=== PATIENT | female | born 1980 | race Caucasian/White ===

== ENCOUNTER → 2016-05-21 | Outpatient (REF) | payer OTHER | LOC: M LAB REF 12:56 | PROVIDERS: ATTEND Obstetrics & Gynecology | DX: Z01.419 Encounter for gynecological examination (general) (routine) without abnormal findings (principal); Z11.51 Encounter for screening for human papillomavirus (HPV) ==

== ENCOUNTER → 2017-02-05 | Outpatient (CLI) | payer OTHER ==
--- NOTE | 2017-02-05 14:30 | REP ---
Clinical: Positive PPD test . Comparison: None . Technique: PA and lateral. Findings: The mediastinum and cardiac silhouette are normal. The lung puentes are clear and without acute consolidation, effusion, or pneumothorax. The skeletal structures are intact and normal. Impression: 1. No acute cardiopulmonary process. Signed by Ramírez Allen MD 02/05/2017 02:22 P
== END ==
LOC: M SMT 13:37
PROVIDERS: ATTEND Physician Assistant
DX: R76.11 Nonspecific reaction to tuberculin skin test without active tuberculosis (principal)

== ENCOUNTER → 2017-06-15 | Outpatient (CLI) | payer OTHER ==
[2017-06-15 18:00] LABS: BASO % 0.4 % (0.0-1.0); HEMATOCRIT 38.3 % (36.0-47.0); HEMOGLOBIN 13.4 g/dl (12.0-16.0); IMMATURE GRANULOCYTE % 0.4 % (0-3.0); LYMPH # 2.5 10^3/uL (1.5-4.5); LYMPH % 29.7 % (24.0-44.0); MEAN CORPUSCULAR HEMOGLOBIN 29.6 pg (27.0-33.0); MEAN CORPUSCULAR VOLUME 84.5 fl (80.0-96.0); MONO # 0.6 10^3/uL (0.0-0.8); MONO % 7.1 % (0.0-5.0); NEUTROPHILS # 5.2 10^3/uL (1.8-7.7); NEUTROPHILS % 62.4 % (36.0-66.0); PLATELET COUNT, AUTOMATED 260 10^3/uL (150-450); RED BLOOD COUNT 4.53 10^6/uL (4.00-5.40); RED CELL DISTRIBUTION WIDTH 12.2 % (11.5-14.5); WHITE BLOOD COUNT 8.3 10^3/uL (4.0-10.0)
[2017-06-15 21:58] LABS: CHLAMYDIA DNA AMPLIFICATION NEGATIVE (NEGATIVE); GC DNA AMPLIFICATION NEGATIVE (NEGATIVE)
[2017-06-16 10:40] LABS: RUBELLA IgG QUALITATIVE IMMUNE (IMMUNE)
[2017-06-16 10:43] LABS: HBsAg Prenatal NEGATIVE (NEGATIVE)
[2017-06-16 11:01] LABS: HEPATITIS C VIRUS ABY INDEX < 0.0 INDEX (<0.8)
[2017-06-16 11:23] LABS: HIV 1&2 SCREEN CENTAUR NEGATIVE (NEGATIVE)
== END ==
LOC: M SMT 14:45
DX: Z34.81 Encounter for supervision of other normal pregnancy, first trimester (principal); Z3A.12 12 weeks gestation of pregnancy
CPT/HCPCS: 86762

== ENCOUNTER → 2017-08-17 | Outpatient (CLI) | payer OTHER | LOC: M SMT 13:39 | DX: Z34.82 Encounter for supervision of other normal pregnancy, second trimester (principal); Z3A.21 21 weeks gestation of pregnancy ==

== ENCOUNTER → 2017-09-07 | Outpatient (CLI) | payer OTHER ==
[2017-09-07 13:47] LABS: HEMATOCRIT 35.4 % (36.0-47.0); HEMOGLOBIN 12.2 g/dl (12.0-15.5); MEAN CORPUSCULAR HEMOGLOBIN 30.6 pg (27.0-33.0); MEAN CORPUSCULAR HGB CONC 34.5 g/dl (32.0-36.5); MEAN CORPUSCULAR VOLUME 88.7 fl (80.0-96.0); PLATELET COUNT, AUTOMATED 211 10^3/uL (150-450); RED BLOOD COUNT 3.99 10^6/uL (4.00-5.40); RED CELL DISTRIBUTION WIDTH 13.8 % (11.5-14.5); WHITE BLOOD COUNT 9.3 10^3/uL (4.0-10.0)
[2017-09-07 14:21] LABS: GLUCOSE CHALLENGE TEST 1 HOUR 95 MG/DL (LESS THAN 140)
[2017-09-08 09:02] LABS: TYPE AND SCREEN 1 1
== END ==
LOC: M SMT 10:32
DX: Z34.82 Encounter for supervision of other normal pregnancy, second trimester (principal); Z36.89 Encounter for other specified antenatal screening
CPT/HCPCS: 82950

== ENCOUNTER → 2017-09-08 | Outpatient (CLI) | payer OTHER | LOC: M RAD 06:24 | DX: Z34.82 Encounter for supervision of other normal pregnancy, second trimester (principal) ==

== ENCOUNTER → 2017-12-03 | Outpatient (REF) | payer OTHER | LOC: M LAB REF 13:02 | DX: Z34.83 Encounter for supervision of other normal pregnancy, third trimester (principal) ==

== ENCOUNTER 2017-12-22 00:07 | Inpatient (IN) | payer OTHER ==
[2017-12-22] MEDS: PENICILLIN G POTASSIUM IV 5 MU in D5W MINI-BAG PLUS 100 ML IV (00:38)
[2017-12-22] MEDS ORDERED: OXYTOCIN 30 UNITS IN 0.9% NaCl 500ML IV BAG (J2590) As Ordered (00:50)
[2017-12-22 01:14] LABS: HEMATOCRIT 37.7 % (36.0-47.0); HEMOGLOBIN 13.2 g/dl (12.0-15.5); MEAN CORPUSCULAR HEMOGLOBIN 31.2 pg (27.0-33.0); MEAN CORPUSCULAR VOLUME 89.1 fl (80.0-96.0); PLATELET COUNT, AUTOMATED 200 10^3/uL (150-450); RED BLOOD COUNT 4.23 10^6/uL (4.00-5.40)
[2017-12-22] MEDS: OXYTOCIN DRIP 30 UNITS in APPROPRIATE DILUENT 1 EA IV ×2 (01:20→06:38)
[2017-12-22] MEDS: LR 1,000 ML IV ×2 (01:20→04:35)
[2017-12-22] MEDS: PROMETHAZINE INJ 25 MG/ML VIAL (J2550) IV (04:06)
[2017-12-22] MEDS: BUTORPHANOL 2 MG/ML INJ (J0595) IV (04:07)
[2017-12-22] MEDS: PENICILLIN G POTASSIUM IV 2.5 MU in APPROPRIATE DILUENT 1 EA IV (04:35)
[2017-12-22] MEDS ORDERED: MOM 30ML SUSPENSION UDC PO (06:45)
[2017-12-22] MEDS ORDERED: METHYLERGONOVINE MALEATE 0.2 MG TAB PO (06:45)
[2017-12-22] MEDS ORDERED: ANUSOL HC CREAM 30GM TOP (06:45)
[2017-12-22] MEDS ORDERED: DOCUSATE SODIUM 100 MG CAP PO (06:45)
[2017-12-22] MEDS ORDERED: DIBUCAINE 1% OINTMENT 30GM TOP (06:45)
[2017-12-22] MEDS ORDERED: ACETAMINOPHEN 500 MG TAB PO (06:45)
[2017-12-22] MEDS: LIDOCAINE 1% MDV 20ML VIAL INFIL (06:45)
[2017-12-22] MEDS: IBUPROFEN 800 MG TAB PO ×3 (08:24→16:26)
[2017-12-22] MEDS: PRENATAL VITAMINS CHEWABLE TABLET PO (08:24)
[2017-12-22] MEDS: MEASLES,MUMPS,RUBELLA VACCINE INJ (MMR-II) (90707) SC (11:33)
[2017-12-22] MEDS: RHOGAM 300 MCG (1500 IU) INJ (J2790) IM (16:26)
[2017-12-23] MEDS: PRENATAL VITAMINS CHEWABLE TABLET PO (13:28)
[2017-12-23] MEDS: IBUPROFEN 800 MG TAB PO (13:28)
== END 2017-12-23 14:00 | disposition home or self-care (01) | DRG 775 ==
LOC: M LDO 00:07 → M LDI 00:30 → M OBS 08:52
PROVIDERS: Obstetrics & Gynecology
PROC: 10E0XZZ Delivery of Products of Conception, External Approach (ICD-10-PCS; principal; 2017-12-22)
PROC: 0UQC0ZZ Repair Cervix, Open Approach (ICD-10-PCS; 2017-12-22)
PROC: 0HQ9XZZ Repair Perineum Skin, External Approach (ICD-10-PCS; 2017-12-22)
DX: O42.02 Full-term premature rupture of membranes, onset of labor within 24 hours of rupture (principal); O71.3 Obstetric laceration of cervix; O99.824 Streptococcus B carrier state complicating childbirth; Z3A.39 39 weeks gestation of pregnancy; O69.81X0 Labor and delivery complicated by cord around neck, without compression, not applicable or unspecified; O70.0 First degree perineal laceration during delivery; Z37.0 Single live birth

== ENCOUNTER → 2017-12-27 | Outpatient (REF) | payer OTHER | LOC: M LAB REF 13:07 | DX: R30.0 Dysuria (principal) ==

== ENCOUNTER → 2018-04-29 | Outpatient (CLI) | payer OTHER ==
[~2018-04-29] MED LIST: FLUO10CA8 PO; FOLI800C PO; IBUP-1114 PO; MAPA500T2 PO; PRENTAB9 PO; ZYRTTAB8 PO
[2018-04-29 13:17] LABS: BASO % 0.6 % (0.0-1.0); HEMATOCRIT 42.5 % (36.0-47.0); HEMOGLOBIN 14.5 g/dl (12.0-15.5); LYMPH # 2.8 10^3/uL (1.5-4.5); LYMPH % 41.4 % (24.0-44.0); MEAN CORPUSCULAR HEMOGLOBIN 28.6 pg (27.0-33.0); MEAN CORPUSCULAR HGB CONC 34.1 g/dl (32.0-36.5); MEAN CORPUSCULAR VOLUME 83.8 fl (80.0-96.0); MONO # 0.5 10^3/uL (0.0-0.8); NEUTROPHILS # 3.4 10^3/uL (1.8-7.7); NEUTROPHILS % 50.6 % (36.0-66.0); PLATELET COUNT, AUTOMATED 282 10^3/uL (150-450); RED BLOOD COUNT 5.07 10^6/uL (4.00-5.40); WHITE BLOOD COUNT 6.7 10^3/uL (4.0-10.0)
[2018-04-29 13:22] LABS: BLOOD UREA NITROGEN 13 MG/DL (7-18); CALCIUM LEVEL 8.9 MG/DL (8.5-10.1); CARBON DIOXIDE LEVEL 31 MEQ/L (21-32); CHLORIDE LEVEL 104 MEQ/L (98-107); CREATININE FOR GFR 0.93 MG/DL (0.55-1.30); GLOMERULAR FILTRATION RATE > 60.0 (>60); GLUCOSE, FASTING 90 MG/DL (70-100); POTASSIUM SERUM 4.5 MEQ/L (3.5-5.1); SODIUM LEVEL 139 MEQ/L (136-145)
[2018-04-29 13:37] LABS: FOLATE > 24.0 NG/ML
[2018-05-02 10:30] LABS: VITAMIN B12 LEVEL 858 PG/ML (232-1245)
== END ==
LOC: M SMT 11:14
PROVIDERS: ATTEND Physician Assistant
DX: D51.9 Vitamin B12 deficiency anemia, unspecified (principal)

== ENCOUNTER → 2018-05-10 | Outpatient (REF) | payer OTHER ==
[2018-05-13 14:17] LABS: HPV HYBRID CAPTURE II Negative (Negative)
== END ==
LOC: M LAB REF 17:52
PROVIDERS: ATTEND Obstetrics & Gynecology
DX: Z12.4 Encounter for screening for malignant neoplasm of cervix (principal); Z11.51 Encounter for screening for human papillomavirus (HPV)
CPT/HCPCS: 87624; G0123

== ENCOUNTER → 2018-07-27 | Outpatient (CLI) | payer OTHER ==
[2018-07-27 13:54] LABS: FREE T4 0.87 NG/DL (0.76-1.46); RHEUMATOID FACTOR QUANT < 10.0 IU/ML (<15.0); TOTAL 25(OH) VITAMIN D 20.5 NG/ML (30.0-100.0); URIC ACID 4.1 MG/DL (2.6-6.0); VITAMIN B12 LEVEL 938 PG/ML (247-911)
[2018-07-30 00:06] LABS: ANTI DOUBLE STRAND-DNA AB 39 IU/mL (0-9); ANTINUCLEAR ANTIBODIES DIRECT Positive (Negative); CYCLIC CITRULLINATED PEPTIDE 17 units (0-19); Lyme Disease IgG/IgM Antibodie <0.91 ISR (0.00-0.90); Lyme Disease IgM Ab Quantitati <0.80 index (0.00-0.79); RNP ANTIBODIES <0.2 AI (0.0-0.9); SJOGREN'S ANTI SS-A <0.2 AI (0.0-0.9); SJOGREN'S ANTI SS-B <0.2 AI (0.0-0.9); SMITH ANTIBODIES <0.2 AI (0.0-0.9)
== END ==
LOC: M SMT 10:10
PROVIDERS: ATTEND Family Medicine
DX: D59.1 Other autoimmune hemolytic anemias (principal); M79.671 Pain in right foot; M79.672 Pain in left foot

== ENCOUNTER → 2018-12-13 | Outpatient (CLI) | payer OTHER ==
[~2018-12-13] MED LIST changes: +FLUO10CA15 PO; -FLUO10CA8 PO
[2018-12-13 17:11] LABS: COMPLEMENT C3 118 MG/DL (90-180); COMPLEMENT C4 18 MG/DL (10-40)
[2018-12-13 17:34] LABS: CREATININE,RANDOM URINE 43.8 MG/DL; TOTAL PROTEIN,RANDOM URINE 6.5 MG/DL (0.0-12.0)
[2018-12-13 17:36] LABS: APPEARANCE, URINE CLEAR (CLEAR); BACTERIA, URINE AUTO NEGATIVE (NEGATIVE); BILIRUBIN, URINE AUTO NEGATIVE (NEGATIVE); BLOOD, URINE BLOOD NEGATIVE (NEGATIVE); COLOR, URINE YELLOW (YELLOW); GLUCOSE, URINE (UA) AUTO NEGATIVE (NEGATIVE); KETONE, URINE AUTO NEGATIVE (NEGATIVE); LEUKOCYTE ESTERASE, URINE AUTO NEGATIVE (NEGATIVE); NITRITE, URINE AUTO NEGATIVE (NEGATIVE); PROTEIN, URINE AUTO NEGATIVE (NEGATIVE); RBC, URINE AUTO 0 /HPF (0-3); SPECIFIC GRAVITY URINE AUTO 1.006 (1.002-1.035); SQUAMOUS EPITHELIAL CELL UR AU 0 /HPF (0-6); UROBILINOGEN, URINE AUTO 0.2 mg/dL (0.0-2.0); WBC, URINE AUTO 0 /HPF (0-3)
[2018-12-19 14:07] LABS: ANA (HEP2) Negative (.); ANTI DS-DNA AB <1:10 titer (.)
== END ==
LOC: M SMT 15:03
PROVIDERS: ATTEND Internal Medicine Rheumatology
DX: R76.8 Other specified abnormal immunological findings in serum (principal)
CPT/HCPCS: 36415; 81001; 82570; 84156; 86038; 86160; 86225; G0463

== ENCOUNTER → 2020-03-31 | Outpatient (CLI) | payer OTHER ==
[~2020-03-31] MED LIST changes: +CELE20TA PO; +D31000TA2 PO; -FLUO10CA15 PO; +FLUO10CA16 PO; +MAGN250T7 PO; +TRI-1TAB PO
== END ==
LOC: M LABSMTC 10:20
PROVIDERS: ATTEND Anesthesiology
DX: Z01.812 Encounter for preprocedural laboratory examination (principal); Z20.822 Contact with and (suspected) exposure to COVID-19

== ENCOUNTER 2020-04-05 10:45 | Day surgery (SDC) | payer OTHER ==
[~2020-04-05] VITALS: Ht 172.7 cm; Wt 85.7 kg
[~2020-04-05 10:45] MED LIST changes: +NS 1,000 ML IV ONE
--- OUTSIDE RECORDS SUMMARY | 2020-04-05 10:53 | CCD | Continuity of Care Document ---
Author Author Beba EARL M.D. Organization Unknown Address [address] [place] [address], [address] [place] [address] Phone [phone] Care Team Providers Care Network Systems Engineer Name Role Phone Natalee Rice D.O. AUTM [phone] Problems Description No Information Available Social History Type Date Description Comments Sex Unknown ETOH Use 1 to 5 a week Recreational Drug Use Denies Drug Use Tobacco Use Start: Unknown Quit Exercise Type/Frequency Exercises regularly HILLARY: 12/27/2017 Estimated Date of Delivery Based on 1st Ultrasound Allergies, Adverse Reactions, Alerts Description No Known Drug Allergies Medications Active Medications SIG Qnty Indications Ordering Provide r Date Celexa 20mg Tablets 1 by mouth every day Unknown Frm-Ye-Mgonxqyh 0.18 /0.215/0.25 mg-25 mcg Tablets 1tab po qd Unknown Magnesium 250MG Tablets 1tab po qd Unknown 0 Vitamin D3 50mcg (1999 [place]) Capsule s 1cap po qd Unknown Zyrtec Allergy 10mg Capsules 1cap po qd Unknown Immune Support Priobiotic W/Lactbacillus Capsule 1cap po qd Unknown Immunizations CPT Code Status Date Vaccine Lot # [id number] Given 12/16/2017 Influenza Virus Split 3 Yrs And Above For Intramuscular Use 79063 Given 10/20/2017 Tetanus, Diphthe edgra Toxoids/Acellular Pertussis Vaccine 7 Or > [id number] Given 10/06/2017 Rho(D) Immune Globulin Full Dose Intramuscular Vital Signs Date Vital Result Comment 03/04/2020 9:22am BP Systolic 114 mmHg BP Diastolic 60 mmHg Height 68 inches 5'8" Weight 184.00 lb BMI (Body Mass Index) 28.0 kg/m2 [place] Body Weight 140 lb Weight 83.462 kg BSA (Body Surface Area) 1.97 m2 05/10/2018 1:19pm BP Systolic 112 mmHg BP Diastolic 68 mmHg Height 68 inches 5'8" Weight 188.00 lb BMI (Body Mass Index) 28.6 kg/m2 [place] Body Weight 140 lb Weight 85.277 kg BSA (Body Surface Area) 1.99 m2 Results Description No Information Available Procedures Description No Information Available Medical Devices Description No Information Available Encounters Description No Information Available Assessments Date Code Description Provider 03/04/2020 K22.4 Dyskinesia of esophagus Ana Earl M.D. 03/04/2020 R13.10 Dysphagia, unspecified Reddy Earl M.D. 03/04/2020 K90.0 Celiac disease Reddy Diggs ala, M.D. Plan of Treatment 03/04/2020 - Reddy Earl M.D.* K22.4 Dyskinesia of esophagus * R13.10 Dysphagia, unspecified * K90.0 Celiac disease * * Comments:* Impression:-- Generalized fatigue and joint aches, and prior abdominal bloating ( improved with probiotics) and work up at PCP clinic showed borderline positive TTG IgG antibodies -- Needs follow up.-- intermittent esophageal spasms associated with choking sensation and regurgitation of ingested food and saliva -- Needs further evaluation. DDx-- EOE vs Silent reflux with stricture vs esophageal motility disorder. * Recommendations:* -- Educated about the prior test results and all possible differential diagnoses. All questions answered. -- Avoid NSAIDs as much as possible. -- Follow the Anti reflux measures; avoid acid reflux inducing food: excessive caffeine, chocolate, alcohol, peppermint and fatty foods; , Avoid large and late meal: eating three or more hours before bedtime. -- Will schedule for EGD with possile dilation and biopsy. The procedure, indications, risks (bleeding, perforation, infection, hypotension, respiratory depression, allergy, need for endotracheal intubation, surgery, or even ), benefits, limitations (e.g., missing a lesion), and all other alternatives (including no intervention) were explained to the patient who understood and agreed for the procedures. -- Return to clinic 2 weeks post procedures. -- Follow up with PMD for routine medical care and other age appropriate health maintenance.. Functional Status Description No Information Available Mental Status Description No Information Available Referrals Refer to Reason for Referral Status Appt Date Reddy Earl M.D. POSITIVE TTG ANTIBODY AND S YMPTOMS OF FATIGUE AND MYALGIAS Scheduled 03/04/[address] [place] [address] [phone]
--- OUTSIDE RECORDS SUMMARY | 2020-04-05 10:53 | CCD ---
Author Author [facility] Organization [facility] Address Unknown Phone Unavailable Care Team Providers Care Group Art Supervisor Name Role Phone Traci Bettencourt Unavailable PROBLEMS Type Condition ICD9-CM Code [id number] Code Onset Dates Condition S tatus SNOMED Code Notes Problem TORREY positive R76.8 Active [id number] Problem History of cervical dysplasia Z87.410 Active 47 [id number] ALLERGIES Allergen (clinical drug ingredient) Drug/Non Drug Allergy do cumented on EMR Reaction Allergy Type Onset Date Status seasonal Unknown Non Drug Allergy Active ENCOUNTERS from 1982 to 2020-03-30 Encounter Location Date Provider Diagnosis [facility] [address] [place] [id number] Mar, Traci Bettencourt Wart B07.9 and Histo ry of cervical dysplasia Z87.410 IMMUNIZATIONS No Information SOCIAL HISTORY Tobacco Use: Social History Observation Description Date Details (start date - stop date) Never Smoker Sex Assigned At : Social History Observation Description Sex Assigned At Unknown Sexual Hx: Question Answer Notes Had sex in the last 12 months (vaginal, oral, or anal)? Yes LMP: 03/18/2020 Have you ever had an STD? No with Men only Use protection? No Alcohol Screening: Question Answer Notes Did you have a drink containing alcohol in the past year? Ye s Points 2 Interpretation Negative How often did you have six or more drinks on one occas ion in the past year? Never (0 points) How many drinks did you have on a typica l day when you were drinking in the past year? 1 or 2 (0 points) How often did you have a drink containing alcohol in t he past year? Two to four times a month (2 points) Tobacco Use: Question Answer Notes Are you a: never smoker REASON FOR REFERRAL No Information VITAL SIGNS Weight 186.8 lbs Mar, Weight-kg 84.73 kg Mar, Height 68 in Mar, BMI 28.4 kg/m2 Mar, Blood pressure systolic 112 mm Hg Mar, Blood pressure diastolic 70 mm Hg Mar, MEDICATIONS Medication SIG (Take, Route, Frequency, Duration) Notes Start Da te End Date Status Zyrtec Allergy 10 MG 1 tablet Orally Once a day for 30 day(s) Active Prenatabs Rx 29-1 MG Oral for 90 No t-Taking Citalopram Hydrobromide 40 MG Oral for 90 Active Vitamin D 50 MCG (1999) 1 tablet Orally Once a day Active Magnesium 250 MG 1 tablet with a meal Orally Once a day Active Tri-Sprintec 0.18/0.215/0.25 MG-35 MCG Oral for 84 Active PROCEDURES No Information RESULTS No Results REASON FOR VISIT POSSIBLY INFECTED CYST MEDICAL (GENERAL) HISTORY Type Description Date Medical History Depression/ Anxiety Surgical History hip pinning 09/2013 Surgical History wisdom teeth 2001 Goals Section No Information Health Concerns No Information MEDICAL EQUIPMENT No Information MENTAL STATUS No Information FUNCTIONAL STATUS No Information ASSESSMENTS Encounter Date Diagnosis Assessment Notes Treatment Notes Treatm ent Clinical Notes Mar, Wart (ICD-10 - B07.9) No evidence today of any vaginal/vulvar cyst based on exam- consistent with patient's statement that it resolved. The area she points to is at 6 o'clock at the vaginal outlet, NOT consistent in location with Bartholin cyst. Regardless, it resolved. She does have a small vulvar wart on the left labia which does not bother her and no tx desired at this time. Mar, History of cervical dysplasia (ICD-10 - Z87.410) Patient had LEEP in 2018. One normal pap after. Overdue for 2nd repeat. She will schedule pap/annual exam. PLAN OF TREATMENT Treatment Notes Assessment Notes Clinical Notes Wart No evidence today of any vag inal/vulvar cyst based on exam- consistent with patient's statement that it resolved. The area she points to is at 6 o'clock at the vaginal outlet, NOT consistent in location with Bartholin cyst. Regardless, it resolved. She does have a small vulvar wart on the left labia which does not bother her and no tx desired at this time. History of cervical dysplasia Patient had LEEP in 2018 . One normal pap after. Overdue for 2nd repeat. She will schedule pap/annual exam. Next Appt Details for annual exam Reason: Provider Name:Traci Bettencourt, 2020-03 03:20:00 PM, [address] [place], [address], Insurance Providers Payer Name Payer Address Payer Phone Insured Name Patient Relati onship to Insured Coverage Start Date Coverage End Date [address] [phone] KIRAN CHADWICK self
--- OUTSIDE RECORDS SUMMARY | 2020-04-05 10:54 | CCD | Continuity of Care Document ---
Author Author Beba RICE Organization Unknown Address [address] [facility] [address] [place] [address] Phone [phone] Care Team Providers Care Real Estate Rep Name Role Phone Natalee Rice D.O. AUTM [phone] Reddy Bello MD AUTM [phone] Problems Active Problems Provider Date Gynecologic examination Natalee Rice D.O. Onset: Acne Natalee Rice D.O. Onset: 2015 Adult health examination Natalee Rice D.O. Onset: 0 10/08/2015 History and physical examination, administrative Natalee Raymond D.O. Onset: 10/08/2015 Arthralgia of the pelvic region and thigh Natalee schultz D.O. Onset: 12/19/2015 Nonallopathic lesion of the head region Natalee Rice D.O. Onset: 12/19/2015 Nonallopathic lesion of the cervical region Natalee rangel D.O. Onset: 12/19/2015 Nonallopathic lesion of the thoracic region Natalee rangel D.O. Onset: 12/19/2015 Nonallopathic lesion of lumbar region Natalee Rice D.O. Onset: 12/19/2015 Somatic dysfunction of sacroiliac joint Natalee Rice D.O. Onset: 12/19/2015 Nonallopathic lesion of the pelvic region Natalee schultz D.O. Onset: 12/19/2015 Nonallopathic lesion of lower extremities Natalee schultz, D.OIzzy Onset: 12/19/2015 Nonallopathic lesion of upper extremities Natalee schultz, D.O. Onset: 12/19/2015 Mantoux: positive FILI Roth Onset: 02/09/2017 Note: CXR and Quantiferon gold negative 02/05. Social History Type Date Description Comments Sex Unknown Tobacco Use Start: Unknown End: Unknown Quit Smoking Status Reviewed: 11/21/19 Quit ETOH Use Occasionally consumes alcohol Tobacco Use Start: Unknown End: Unknown Patient is a former smoker Recreational Drug Use Denies Drug Use Exercise Type/Frequency Cardio 1-2 days a week Sun Exposure Uses sunscreen Seat Belt/Car Seat Always uses seat belt Allergies, Adverse Reactions, Alerts Description No Known Drug Allergies Medications Active Medications SIG Qnty Indications Ordering Provide r Date Ortho Tri-Cyclen Lo 0.18/0.215/0.25 mg-25 mcg Tablets 1 by mouth every day 28tabs Natalee Rice D.O. 11/21/2019 Citalopram Hydrobromide 20mg Table ts 1 by mouth every day 30tabs F41.1 Amanda Palmer.OIzzy 10/30 Vitamin D3 5000Unit Tablets 1 by mouth every day 90tabs E55.9 Amanda Palmer.O. 08/02 Fluticasone Propionate 50mcg/Act Suspension 1 spray each nostril twice daily as needed for congestion. 16gm J30.9 Natalee Rice D.OIzzy 04/29/2018 Biotin Maximum Strength 5000mcg Ca psules 1 by mouth every day Unknown Zyrtec Allergy 10mg Tablets 1 by mouth every night Unknown Magnesium 250mg Tablets 1 by mouth a day Unknown Multi-Vitamin Gummies Chewtabs Unknown Medications Administered in Office Medication SIG Qnty Indications Ordering Provider Date Immunization Administration Single Or Co mbination Injection Nurse 02/03/2017 Immunization Administration Single Or Co mbination Injection Nurse 01/14/2016 Immunization Adminstration 2+ Single Or Combination Injection Natalee Cabral D.O. 10/08/2015 Immunization Administration Single Or Co mbination Injection Amanda Palmer 10/08/2015 Immunizations CPT Code Status Date Vaccine Lot # [id number] Given 02/03/2017 Influenza Vaccin e Quadrivalent Preser/Antibiotic Free Im Use [id number] 69006 Given 02/03/2017 TB Intradermal Test [id number] 55529 Given 01/14/2016 Influenza Virus Vaccine, Quadrivalent, Split, Preservative Free [id number] [id number] Given 10/08/2015 Hepatitis B Vaccine Adult 73 X43 32367 Given 10/08/2015 Meningococcal Vaccine (Any G roups) For Subcutaneous Use [id number] 49033 Given 10/08/2015 Tetanus, Diphthe edgar Toxoids/Acellular Pertussis Vaccine 7 Or > [id number] 31968 Given 10/08/2015 TB Intradermal Test [id number] U-HepB Given 03/05/1997 Hepatitis B,Unspecified U-HepB Given 02/01/1997 Hepatitis B,Unspecified 68794 Given 02/01/1997 MMR Vaccine, Live, For Subcu taneous Use U-Polio Given 12/31/1987 Polio,Unspecified U-DTaP Given 12/30/1984 DTaP,Unspecified U-HIB Given 12/27/1984 Hib,Unspecified U-Polio Given 06/23/1984 Polio,Unspecified U-DTaP Given 06/23/1984 DTaP,Unspecified 95071 Given 03/28/1984 MMR Vaccine, Live, For Subcu taneous Use U-DTaP Given 06/24/1983 DTaP,Unspecified U-Polio Given 05/01/1983 Polio,Unspecified U-DTaP Given 05/01/1983 DTaP,Unspecified U-Polio Given 02/26/1983 Polio,Unspecified U-DTaP Given 02/26/1983 DTaP,Unspecified Vital Signs Date Vital Result Comment 01/22/2020 9:26am BP Systolic 116 mmHg BP Diastolic 74 mmHg Height 68.3 inches 5'8.30" Weight 185.38 lb BMI (Body Mass Index) 27.9 kg/m2 Heart Rate 94 /min Respiratory Rate 18 /min Body Temperature 98.6 F O2 % BldC Oximetry 98 % [place] Body Weight 140 lb 11/21/2019 9:16am BP Systolic 118 mmHg BP Diastolic 70 mmHg Height 68.3 inches 5'8.30" Weight 181.25 lb BMI (Body Mass Index) 27.3 kg/m2 Heart Rate 89 /min Respiratory Rate 18 /min Body Temperature 98.3 F O2 % BldC Oximetry 98 % [place] Body Weight 140 lb Results Test Acquired Date Facility Test Result H/L Range Note Laboratory test finding 11/21/2019 Inhouse Inhouse Urine neg Procedures Description No Information Available Medical Devices Description No Information Available Encounters Type Date Location Provider Dx Diagnosis Office Visit 01/22/2020 9:40a [facility] Natalee Rice D.O. R53.83 Other fatigue M79.10 Myalgia, unspecified site R76.0 Raised antibody titer E55.9 Vitamin D deficiency, unspec ified F32.0 Major depressive disorder, s shannan episode, mild F41.1 Generalized anxiety disorder Z79.899 Other custodial (current) dr galvan therapy Office Visit 11/21/2019 9:20a [facility] Natalee Rice D.O. R53.83 Other fatigue M79.10 Myalgia, unspecified site R76.0 Raised antibody titer Z30.011 Encounter for initial prescr iption of contraceptive pills Office Visit 10/31/2019 8:40a [facility] Natalee Rice D.O. R53.83 Other fatigue M79.10 Myalgia, unspecified site E55.9 Vitamin D deficiency, unspec ified F32.0 Major depressive disorder, s shannan episode, mild F41.1 Generalized anxiety disorder Z79.899 Other custodial (current) dr galvan therapy Z79.3 care home (current) use of h ormonal contraceptives R76.0 Raised antibody titer Assessments Date Code Description Provider 01/22/2020 R53.83 Other fatigue Natalee rangel D.O. 01/22/2020 M79.10 Myalgia, unspecified site Natalee Ruggiero D.OIzzy 01/22/2020 R76.0 Raised antibody titer Natalee Mackay D.OIzzy 01/22/2020 E55.9 Vitamin D deficiency, unspecifie d Natalee Rice, D.O. 01/22/2020 F32.0 Major depressive disorder, singl e episode, mild Natalee Malin, D.O. 01/22/2020 F41.1 Generalized anxiety disorder Sofie l Krystal, D.O. 01/22/2020 Z79.899 Other custodial (current) drug t herapy Natalee Jassober, D.O. 11/21/2019 R53.83 Other fatigue Natalee Padgett-Cash rber, D.O. 11/21/2019 M79.10 Myalgia, unspecified site Natalee Ruggiero, D.O. 11/21/2019 R76.0 Raised antibody titer Natalee Mackay, D.O. 11/21/2019 Z30.011 Encounter for initial prescripti on of contraceptive pills Natalee Rice, D.O. 10/31/2019 R53.83 Other fatigue Natalee Padgett-Shreya cacereser, D.O. 10/31/2019 M79.10 Myalgia, unspecified site Natalee Kristie Bahman, D.O. 10/31/2019 E55.9 Vitamin D deficiency, unspecifie d Natalee Rice, D.O. 10/31/2019 F32.0 Major depressive disorder, singl e episode, mild Natalee Malin, D.O. 10/31/2019 F41.1 Generalized anxiety disorder Sofie l Krystal, D.O. 10/31/2019 Z79.899 Other custodial (current) drug t herapy Natalee Rice, D.O. 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 10/31/2019 R76.0 Raised antibody titer Natalee Mackay D.O. Plan of Treatment Future Appointment(s):* 04/23/2020 9:20 am - Natalee Rice D.O. at [facility] Functional Status Description No Information Available Mental Status Description No Information Available Referrals Refer to Reason for Referral Status Appt Date Reddy Bello MD This is a 38 year old female with weakly positive TTG antibody. She has symptoms of fatigue and myalgias. She has a history for positive TORREY but repeat today was negative. Please evaluate and treat. Sent [address] [place] [address] [phone]
--- OUTSIDE RECORDS SUMMARY | 2020-04-05 10:54 | CCD | Continuity of Care Document ---
Author Author Beba RICE Organization Unknown Address [address] [facility] [address] [place] [address] Phone [phone] Care Team Providers Care Sewage Screen Operator Name Role Phone Natalee Rice D.O. AUTM [phone] Reddy Bello MD AUTM [phone] Problems Active Problems Provider Date Gynecologic examination [...] schultz, D.O. Onset: 12/19/2015 Mantoux: positive FILI Roht Onset: 02/09/2017 Note: CXR and Quantiferon gold [...] CPT Code Status Date Vaccine Lot # [id number] Given 02/03/2017 Influenza Vaccin e Quadrivalent Preser/Antibiotic Free Im Use [id number] 19883 Given 02/03/2017 TB Intradermal Test [id number] 73669 Given 01/14/2016 Influenza Virus Vaccine, Quadrivalent, Split, Preservative Free [id number] 09248 Given 10/08/2015 Hepatitis B Vaccine Adult 73 X43 81155 Given 10/08/2015 Meningococcal Vaccine (Any G roups) For Subcutaneous Use [id number] 93066 Given 10/08/2015 Tetanus, Diphthe edgar Toxoids/Acellular Pertussis Vaccine 7 Or > [id number] 57060 Given 10/08/2015 TB Intradermal Test [id number] U-HepB Given 03/05/1997 Hepatitis B,Unspecified U-HepB Given 02/01/1997 Hepatitis B,Unspecified 50415 Given 02/01/1997 MMR Vaccine, Live, For Subcu taneous Use U-Polio Given 12/31/1987 Polio,Unspecified U-DTaP Given 12/30/1984 DTaP,Unspecified U-HIB Given 12/27/1984 Hib,Unspecified U-Polio Given 06/23/1984 Polio,Unspecified U-DTaP Given 06/23/1984 DTaP,Unspecified 21590 Given 03/28/1984 MMR Vaccine, Live, For Subcu [...] F O2 % BldC Oximetry 98 % [place] Body Weight 140 lb 11/21/2019 9:16am BP Systolic 118 mmHg BP Diastolic 70 mmHg Height 68.3 inches 5'8.30" Weight 181.25 lb BMI (Body Mass Index) 27.3 kg/m2 Heart Rate 89 /min Respiratory Rate 18 /min Body Temperature 98.3 F O2 % BldC Oximetry 98 % [place] Body Weight 140 lb Results Test Acquired Date Facility Test Result H/L Range Note Laboratory test finding 11/21/2019 Inhouse Inhouse Urine neg Procedures Description No Information Available Medical Devices Description No Information Available Encounters Type Date Location Provider Dx Diagnosis Office Visit 01/22/2020 9:40a [facility] Natalee Rice D.O. R53.83 Other fatigue M79.10 Myalgia, unspecified site R76.0 Raised antibody titer E55.9 Vitamin D deficiency, unspec ified F32.0 Major depressive disorder, s shannan episode, mild F41.1 Generalized anxiety disorder Z79.899 Other fci (current) dr galvan therapy Office Visit 11/21/2019 9:20a [facility] Natalee Rice D.O. R53.83 Other fatigue M79.10 Myalgia, unspecified site R76.0 Raised antibody titer Z30.011 Encounter for initial prescr iption of contraceptive pills Office Visit 10/31/2019 8:40a [facility] Natalee Rice D.O. R53.83 Other fatigue M79.10 Myalgia, unspecified site E55.9 Vitamin D deficiency, unspec ified F32.0 Major depressive disorder, s shannan episode, mild F41.1 Generalized anxiety disorder Z79.899 Other [facility]ci (current) dr galvan therapy Z79.3 [facility] (current) use of h ormonal contraceptives R76.0 [...] Sofie l Krystal, D.O. 01/22/2020 Z79.899 Other [facility] (current) drug t herapy Natalee Jassober, D.O. [...] Sofie l Krystal, D.O. 10/31/2019 Z79.899 Other [facility] (current) drug t herapy Natalee Rice, D.O. 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 10/31/2019 R76.0 Raised antibody titer Natalee Mackay D.O. Plan of Treatment Future Appointment(s):* 04/23/2020 9:20 am - Natalee Rice D.O. at [facility] Functional Status Description No Information Available Mental Status Description No Information Available Referrals Refer to Reason for Referral Status Appt Date Reddy Bello MD This is a 38 year old female with weakly positive TTG antibody. She has symptoms of fatigue and myalgias. She has a history for positive TORREY but repeat today was negative. Please evaluate and treat. Sent [address] [place] [address] [phone]
--- OUTSIDE RECORDS SUMMARY | 2020-04-05 10:54 | CCD ---
Author Author [facility] Address Unknown Phone Unavailable Care Team Providers Care Skewer Up Name Role Phone LUCILLE-RABIA, STORM DO Unavailable Unavailable LUCILLE-RABIA, STORM DO Unavailable Unavailable LUCILLE-RABIA, STORM DO Unavailable Unavailable LUCILLE-RABIA, STORM DO Unavailable Unavailable LUCILLE-RABIA, STORM DO Unavailable Unavailable LUCILLE-RABIA, STORM DO Unavailable Unavailable LUCILLE-RABIA, STORM DO Unavailable Unavailable LUCILLE-RABIA, STORM DO Unavailable Unavailable LUCILLE-RABIA, STORM DO Unavailable Unavailable LUCILLE-RABIA, STORM DO Unavailable Unavailable LUCILLE-RABIA, STORM DO Unavailable Unavailable LUCILLE-RABIA, STORM DO Unavailable Unavailable LUCILLE-RABIA, STORM DO Unavailable Unavailable LUCILLE-RABIA, STORM DO Unavailable Unavailable LUCILLE-RABIA, STORM DO Unavailable Unavailable LUCILLE-RABIA, STORM DO Unavailable Unavailable LUCILLE-RABIA, STORM DO Unavailable Unavailable LUCILLE-RABIA, STORM DO Unavailable Unavailable LUCILLE-RABIA, STORM DO Unavailable Unavailable LUCILLE-RABIA, STORM DO Unavailable Unavailable LUCILLE-RABIA, STORM DO Unavailable Unavailable LUCILLE-RABIA, STORM DO Unavailable Unavailable LUCILLE-RABIA, STORM DO Unavailable Unavailable LUCILLE-RABIA, STORM DO Unavailable Unavailable LUCILLE-RABIA, STORM DO Unavailable Unavailable LUCILLE-RABIA, STORM DO Unavailable Unavailable LUCILLE-RABIA, STORM DO Unavailable Unavailable LUCILLE-RABIA, STORM DO Unavailable Unavailable LUCILLE-RABIA, STORM DO Unavailable Unavailable LUCILLE-RABIA, STORM DO Unavailable Unavailable LUCILLE-RABIA, STORM DO Unavailable Unavailable LUCILLE-RABIA, STORM DO Unavailable Unavailable LUCILLE-RABIA, STORM DO Unavailable Unavailable LUCILLE-RABIA, STORM DO Unavailable Unavailable LUCILLE-RABIA, STORM DO Unavailable Unavailable LUCILLE-RABIA, STORM DO Unavailable Unavailable LUCILLE-RABIA, STORM DO Unavailable Unavailable LUCILLE-RABIA, STORM DO Unavailable Unavailable LUCILLE-RABIA, STORM DO Unavailable Unavailable LUCILLE-RABIA, STORM DO Unavailable Unavailable LUCILLE-RABIA, STORM DO Unavailable Unavailable LUCILLE-RABIA, STORM DO Unavailable Unavailable LUCILLE-RABIA, STORM DO Unavailable Unavailable LUCILLE-RABIA, STORM DO Unavailable Unavailable LUCILLE-RABIA, STORM DO Unavailable Unavailable LUCILLE-RABIA, STORM DO Unavailable Unavailable LUCILLE-RABIA, STORM DO Unavailable Unavailable LUCILLE-RABIA, STORM DO Unavailable Unavailable LUCILLE-RABIA, STORM DO Unavailable Unavailable LUCILLE-RABIA, STORM DO Unavailable Unavailable LUCILLE-RABIA, STORM DO Unavailable Unavailable LUCILLE-RABIA, STORM DO Unavailable Unavailable LUCILLE-RABIA, STORM DO Unavailable Unavailable LUCILLE-RABIA, STORM DO Unavailable Unavailable LUCILLE-RABIA, STORM DO Unavailable Unavailable LUCILLE-RABIA, STORM DO Unavailable Unavailable LUCILLE-RABIA, STORM DO Unavailable Unavailable LUCILLE-RABIA, STORM DO Unavailable Unavailable LUCILLE-RABIA, STORM DO Unavailable Unavailable LUCILLE-RABIA, STORM DO Unavailable Unavailable LUCILLE-RABIA, STORM DO Unavailable Unavailable LUCILLE-RABIA, STORM DO Unavailable Unavailable LUCILLE-RABIA, STORM DO Unavailable Unavailable LUCILLE-RABIA, STORM DO Unavailable Unavailable LUCILLE-RABIA, STORM DO Unavailable Unavailable LUCILLE-RABIA, STORM DO Unavailable Unavailable LUCILLE-RABIA, STORM DO Unavailable Unavailable LUCILLE-RABIA, STORM DO Unavailable Unavailable LUCILLE-RABIA, STORM DO Unavailable Unavailable LUCILLE-RABIA, STORM DO Unavailable Unavailable LUCILLE-RABIA, STORM DO Unavailable Unavailable LUCILLE-RABIA, STORM DO Unavailable Unavailable LUCILLE-RABIA, STORM DO Unavailable Unavailable LUCILLE-RABIA, STORM DO Unavailable Unavailable LUCILLE-RABIA, STORM DO Unavailable Unavailable LUCILLE-RABIA, STORM DO Unavailable Unavailable LUCILLE-RABIA, STORM DO Unavailable Unavailable LUCILLE-RABIA, STORM DO Unavailable Unavailable LUCILLE-RABIA, STORM DO Unavailable Unavailable LUCILLE-RABIA, STORM DO Unavailable Unavailable LUCILLE-RABIA, STORM DO Unavailable Unavailable Re-disclosure Warning The records that you are about to access may contain information from federally-assisted alcohol or drug abuse programs. If such information is present, then the following federally mandated warning applies: This information has been disclosed to you from records protected by federal confidentiality rules (42 CFR part 2). The federal rules prohibit you from making any further disclosure of this information unless further disclosure is expressly permitted by the written consent of the person to whom it pertains or as otherwise permitted by 42 CFR part 2. A general authorization for the release of medical or other information is NOT sufficient for this purpose. The Federal rules restrict any use of the information to criminally investigate or prosecute any alcohol or drug abuse patient.The records that you are about to access may contain highly sensitive health information, the redisclosure of which is protected by Article 27-F of the [facility] Public Health law. If you continue you may have access to information: Regarding HIV / AIDS; Provided by facilities licensed or operated by the [facility] Office of Mental Health; or Provided by the [facility] Office for People With Developmental Disabilities. If such information is present, then the following [facility] mandated warning applies: This information has been disclosed to you from confidential records which are protected by state law. State law prohibits you from making any further disclosure of this information without the specific written consent of the person to whom it pertains, or as otherwise permitted by law. Any unauthorized further disclosure in violation of state law may result in a fine or detention sentence or both. A general authorization for the release of medical or other information is NOT sufficient authorization for further disc losure. Family History Family Member Name Family Member Gender Family Member Status Date o f Status Description Data Source(s) Unknown Unknown Problem [facility] ([facility], ) Unknown Female Problem [facility] ([facility]) Unknown Female Problem [facility] ([facility]) Unknown Female Problem [facility] ([facility]) Unknown Female Problem [facility] ([facility]) Unknown Female Problem [facility] ([facility]) Encounters Encounter Providers Location Date Indications Data Source(s ) Outpatient [facility] [place] [address] 03/26/2020 12:00:00 AM EST eCW1 ([facility]) Outpatient Attender: STORM BAEZ [facility] 01/22/2020 08:40:00 AM EST [facility] ([facility]) Outpatient Attender: STORM BAEZ [facility] 11/21/2019 09:20:00 AM EDT [facility] ([facility]) Outpatient Attender: STORM BAEZ [facility] 10/31/2019 08:40:00 AM EDT [facility] ([facility]) Medications Medication Brand Name Start Date Product Form Dose Route Admi nistrative Instructions Pharmacy Instructions Status Indications Reaction Description Data Source(s) Ortho Tri-Cyclen Lo Ortho Tri-Cyclen Lo 11/21/2019 12:00:00 AM EDT ORAL active [facility] ([facility]) Citalopram 20 MG Oral Tablet Citalopram Hydrobromide 10/31/2019 12:00:00 AM EDT ORAL active [facility] ( [facility]) Insurance Providers Payer name Policy type / Coverage type Policy ID Covered constitution party ID Covered constitution party's relationship to lau Policy Lau Plan Information [facility] [id number] [facility] [employer] [id number] Self [id number] [facility] [id number] Self 00 [id number] [facility] Commercial [id number] Self 00 [id number] [facility] Health Maintenance Organization (O) [id number] Self [id number] [facility] Commercial [id number] Self 00 [id number] [facility] Commercial [id number] Self [id number] [facility] Commercial [id number] Self 00 [id number] [facility] Commercial [id number] Self 00 [id number] [facility] Commercial [id number] Self 00 [id number] [facility] Commercial [id number] Self 00 [id number] [facility] Health Maintenance Organization (O) [id number] Self [id number] [facility] Commercial Self [facility] Health Maintenance Organization [place] Self Problems, Conditions, and Diagnoses Code Display Name Description Problem Type Effective Dates Data Source(s) Z87.410 History of cervical dysplasia History of cervical dysp lasia Problem 03/26/2020 12:00:00 AM EST eCW1 ([facility]) Results ID Date Data Source [id number] 03/31/2020 10:00:00 AM EST [facility] Name Value Range Interpretation Code Description Data Monica rce(s) Supporting Document(s) SARS coronavirus 2 RNA Not Detected [facility] [place] This lab was ordered by [facility] and reported by [facility]. ID Date Data Source [id number] 11/21/2019 09:47:00 AM EDT [facility] ([facility]) Name Value Range Interpretation Code Description Data Monica rce(s) Supporting Document(s) Inhouse Urine Laboratory test result [facility]) Procedure Social History Code Duration Value Status Description Data Source(s ) Smoking 03/26/2020 12:00:00 AM EST Never Smoker completed Never S moker eCW1 ([facility]) Smoking 11/21/2019 12:00:00 AM EDT Quit completed Quit [facility] ([facility]) Vital Signs ID Date Data Source UNK Name Value Range Interpretation Code Description Data Source(s) Diastolic blood pressure 70 mm[Hg] 70 mm[Hg] eCW1 ([facility]) Systolic blood pressure 112 mm[Hg] 112 mm[Hg] e CW1 ([facility]) Body mass index (BMI) [Ratio] 28.4 kg/m2 28.4 k g/m2 eCW1 ([facility]) Body height 68 [in_i] 68 [in_i] eCW1 ([facility]) Body weight 84.73 kg 84.73 kg eCW1 ([facility]) Body weight 186.8 [lb_av] 186.8 [lb_av] eCW1 ([facility]) Body surface area Derived from formula 1.97 m2 1.97 m2 [facility] ([facility]) Body weight 83.462 kg 83.462 kg [facility] ([facility]) [place] body weight 140 [lb_av] 140 [lb_av] MEDEN T ([facility]) Body mass index (BMI) [Ratio] 28.0 kg/m2 28.0 k g/m2 [facility] ([facility]) Body weight 184.00 [lb_av] 184.00 [lb_av] MEDEN T ([facility]) Body height 68 [in_i] 68 [in_i] [facility] ([facility]) 5'8" Diastolic blood pressure 60 mm[Hg] 60 mm[Hg] [facility] ([facility]) Systolic blood pressure 114 mm[Hg] 114 mm[Hg] M EDENT ([facility]) [place] body weight 140 [lb_av] 140 [lb_av] MEDEN T ([facility]) Oxygen saturation in Arterial blood by Pulse oximetry 98 % 98 % [facility] ([facility]) Body temperature 98.6 [degF] 98.6 [degF] [facility] ([facility]) Respiratory rate 18 /min 18 /min [facility] ( [facility]) Heart rate 94 /min 94 /min [facility] ([facility]) Body mass index (BMI) [Ratio] 27.9 kg/m2 27.9 k g/m2 [facility] ([facility]) Body weight 185.38 [lb_av] 185.38 [lb_av] MEDEN T ([facility]) Body height 68.3 [in_i] 68.3 [in_i] MEDENT ([facility]) 5'8.30" Diastolic blood pressure 74 mm[Hg] 74 mm[Hg] MED[facility] ([facility]) Systolic blood pressure 116 mm[Hg] 116 mm[Hg] M EDENT ([facility]) [place] body weight 140 [lb_av] 140 [lb_av] MEDEN T ([facility]) Oxygen saturation in Arterial blood by Pulse oximetry 98 % 98 % [facility] ([facility]) Body temperature 98.3 [degF] 98.3 [degF] [facility] ([facility]) Respiratory rate 18 /min 18 /min [facility] ( [facility]) Heart rate 89 /min 89 /min [facility] ([facility]) Body mass index (BMI) [Ratio] 27.3 kg/m2 27.3 k g/m2 [facility] ([facility]) Body weight 181.25 [lb_av] 181.25 [lb_av] MEDEN T ([facility]) Body height 68.3 [in_i] 68.3 [in_i] [facility] ([facility]) 5'8.30" Diastolic blood pressure 70 mm[Hg] 70 mm[Hg] MED[facility] ([facility]) Systolic blood pressure 118 mm[Hg] 118 mm[Hg] M RICKEYENT ([facility]) Oxygen saturation in Arterial blood by Pulse oximetry 98 % 98 % [facility] ([facility]) Body temperature 97.9 [degF] 97.9 [degF] [facility] ([facility]) Respiratory rate 16 /min 16 /min [facility] ( [facility]) Heart rate 84 /min 84 /min [facility] ([facility]) Body mass index (BMI) [Ratio] 26.8 kg/m2 26.8 k g/m2 [facility] ([facility]) Body weight 178.00 [lb_av] 178.00 [lb_av] MEDEN T ([facility]) Body height 68.3 [in_i] 68.3 [in_i] AUGUSTINA ([facility]) 5'8.30" Diastolic blood pressure 70 mm[Hg] 70 mm[Hg] AUGUSTINA ([facility]) Systolic blood pressure 102 mm[Hg] 102 mm[Hg] Meek RILEY ([facility])
[2020-04-05] MEDS ORDERED: propofoL 200 MG/20 ML VIAL As Ordered ONE ×2 (12:26→12:32)
[2020-04-05] MEDS ORDERED: LIDOCAINE 2% 100MG/5ML SDV (FOR ANES.) As Ordered ONE (12:26)
--- NOTE | 2020-04-05 12:57 | ROOR ---
Patient Name: Beba Singh Procedure Date: 04/05/2020 12:17 PM Date of : 1980 Age: 39 Room: [facility] Gender: Female Note Status: Finalized Procedure: Upper GI endoscopy Indications: Dysphagia, Positive celiac serologies Providers: Reddy Bello MD Referring MD: Natalee BAEZ DO Requestharjit Provider: Medicines: Monitored Anesthesia Care Complications: No immediate complications. Procedure: Pre-Anesthesia Assessment: - Prior to the procedure, a History and Physical was performed, and patient medications and allergies were reviewed. The patient is competent. The risks and benefits of the procedure and the sedation options and risks were discussed with the patient. All questions were answered and informed consent was obtained. Patient identification and proposed procedure were verified by the physician, the nurse and the anesthesiologist in the procedure room. Mental Status Examination: alert and oriented. Airway Examination: normal oropharyngeal airway and neck mobility. Respiratory Examination: clear to auscultation. CV Examination: normal. Prophylactic Antibiotics: The patient does not require prophylactic antibiotics. Prior Anticoagulants: The patient has taken no previous anticoagulant or antiplatelet agents. ASA Grade Assessment: II - A patient with mild systemic disease. After reviewing the risks and benefits, the patient was deemed in satisfactory condition to undergo the procedure. The anesthesia plan was to use monitored anesthesia care (MAC). Immediately prior to administration of medications, the patient was re-assessed for adequacy to receive sedatives. The heart rate, respiratory rate, oxygen saturations, blood pressure, adequacy of pulmonary ventilation, and response to care were monitored throughout the procedure. The physical status of the patient was re-assessed after the procedure. The Endoscope was introduced through the mouth, and advanced to the second part of duodenum. The upper GI endoscopy was accomplished without difficulty. The patient tolerated the procedure well. Findings: Mucosal changes including ringed esophagus, longitudinal furrows and white plaques were found in the middle third of the esophagus and in the lower third of the esophagus. Biopsies were obtained from the proximal and distal esophagus with cold forceps for histology of suspected eosinophilic esophagitis. Verification of patient identification for the specimen was done by the physician and nurse using the patient's name, date and medical record number. Estimated blood loss was minimal. Scattered moderate inflammation characterized by erosions, erythema and granularity was found in the gastric antrum. Biopsies were taken with a cold forceps for Helicobacter pylori testing. Patchy areas of mucosal flattening was found in the duodenal bulb and in the second portion of the duodenum. Biopsies for histology were taken with a cold forceps for evaluation of celiac disease. Impression: - Esophageal mucosal changes suspicious for eosinophilic esophagitis. Biopsied. - Gastritis. Biopsied. - Flattened mucosa was found in the duodenum, suspicious for celiac disease. Biopsied. Recommendation: - Patient has a contact number available for emergencies. The signs and symptoms of potential delayed complications were discussed with the patient. Return to normal activities tomorrow. Written discharge instructions were provided to the patient. - High fiber diet. - Avoid the food allergens. Follow Six Food Elimination Diet ( Avoid -- milk, soy, eggs, wheat, peanuts/tree nuts, and seafood), until allergy testing is done. - Use Prilosec (omeprazole) 40 mg PO Daily - to be taken early breastfeeding care specialist on empty stomach for 3 months. - Await pathology results. - Follow an antireflux regimen. - Return to GI clinic in [facility] (address [address], [place] [address]) in 4 -- 6 weeks. Please call GI clinic @ [phone] for apppointment date and time. - Return to primary care physician. Procedure Code(s): --- Professional --- 23617, Esophagogastroduodenoscopy, flexible, transoral; with biopsy, single or multiple Diagnosis Code(s): --- Professional --- K22.8, Other specified diseases of esophagus K29.70, Gastritis, unspecified, without bleeding K31.89, Other diseases of stomach and duodenum R13.10, Dysphagia, unspecified R76.8, Other specified abnormal immunological findings in serum CPT copyright 2019 [employer]. All rights reserved. The codes documented in this report are preliminary and upon classified ad clerk review may be revised to meet current compliance requirements. Reddy Bello MD Reddy Bello MD 04/05/2020 12:56:32 PM Electronically signed by Reddy Bello MD Number of Addenda: 0 Note Initiated On: 04/05/2020 12:17 PM Estimated Blood Loss: Estimated blood loss was minimal.
[2020-04-05 13:05] VITALS: BP 116/69
== END 2020-04-05 13:32 | disposition home or self-care (01) ==
LOC: M OPP 10:45
PROVIDERS: ATTEND Internal Medicine Gastroenterology
DX: R13.10 Dysphagia, unspecified (principal); R76.8 Other specified abnormal immunological findings in serum; D13.0 Benign neoplasm of esophagus; D13.1 Benign neoplasm of stomach; K22.8 Other specified diseases of esophagus; K29.70 Gastritis, unspecified, without bleeding; K31.89 Other diseases of stomach and duodenum; R12 Heartburn; F41.9 Anxiety disorder, unspecified; F32.9 Major depressive disorder, single episode, unspecified; Z87.891 Personal history of nicotine dependence; Z79.899 Other long term (current) drug therapy; Z82.49 Family history of ischemic heart disease and other diseases of the circulatory system; Z80.0 Family history of malignant neoplasm of digestive organs; Z84.1 Family history of disorders of kidney and ureter

== ENCOUNTER → 2020-12-09 | Outpatient (CLI) | payer OTHER ==
[~2020-12-09] MED LIST changes: -FLUO10CA16 PO; +FLUO10CA18 PO; -NS 1,000 ML IV ONE
[2020-12-09 12:24] LABS: BASO % 0.3 % (0.0-1.0); HEMATOCRIT 41.2 % (36.0-47.0); HEMOGLOBIN 13.5 g/dl (12.0-15.5); LYMPH % 34.4 % (24.0-44.0); MEAN CORPUSCULAR HGB CONC 32.8 g/dl (32.0-36.5); MEAN CORPUSCULAR VOLUME 88.4 fl (80.0-96.0); MONO # 0.4 10^3/uL (0.0-0.8); MONO % 6.8 % (2.0-8.0); NEUTROPHILS # 3.3 10^3/uL (1.5-8.5); NEUTROPHILS % 58.2 % (36.0-66.0); PLATELET COUNT, AUTOMATED 254 10^3/uL (150-450); RED BLOOD COUNT 4.66 10^6/uL (4.00-5.40); WHITE BLOOD COUNT 5.7 10^3/uL (4.0-10.0)
[2020-12-09 12:59] LABS: ALBUMIN 3.5 GM/DL (3.2-5.2); ALT/SGPT 14 U/L (12-78); BILIRUBIN,TOTAL 0.6 MG/DL (0.2-1.0); BLOOD UREA NITROGEN 12 MG/DL (7-18); CALCIUM LEVEL 8.9 MG/DL (8.5-10.1); CARBON DIOXIDE LEVEL 28 MEQ/L (21-32); CHLORIDE LEVEL 108 MEQ/L (98-107); CHOLESTEROL LEVEL 183 MG/DL (<200); CREATININE FOR GFR 0.84 MG/DL (0.55-1.30); FREE T4 0.93 NG/DL (0.76-1.46); GLOMERULAR FILTRATION RATE > 60.0 (>60); GLUCOSE, FASTING 107 MG/DL (70-100); HDL CHOLESTEROL 50 MG/DL (>40); LDL CHOLESTEROL 115 MG/DL (<100); NON-HDL-C 133 MG/DL; POTASSIUM SERUM 4.5 MEQ/L (3.5-5.1); SODIUM LEVEL 141 MEQ/L (136-145); TOTAL 25(OH) VITAMIN D 44.7 NG/ML (30.0-100.0); TOTAL PROTEIN 6.7 GM/DL (6.4-8.2); TRIGLYCERIDES LEVEL 90 MG/DL (<150)
== END ==
LOC: M PLALAB 10:07
PROVIDERS: ATTEND Family Medicine
DX: Z13.29 Encounter for screening for other suspected endocrine disorder (principal)